=== PATIENT | female | born 1995 | race African-American/Black ===

== ENCOUNTER 2024-08-27 19:04 | Emergency (ER) | payer BC ==
[2024-08-27 19:16] VITALS: BP 107/71; PULSE 86; RESP 20; TEMP 99; BMI 31.1
== END 2024-08-27 20:44 | disposition home or self-care (01) ==
LOC: JER 19:04
DX: F10.230 Alcohol dependence with withdrawal, uncomplicated (principal); J45.909 Unspecified asthma, uncomplicated
CPT/HCPCS: 80305; 99283-25